=== PATIENT | male | born 1980 | race African-American/Black ===

== ENCOUNTER 2017-07-24 08:38 | Emergency (ER) | payer OTHER ==
[~2017-07-24] VITALS: Ht 165.1 cm; Wt 73.0 kg
[2017-07-24] MEDS ORDERED: MORPHINE SULFATE 4 MG/ML CPJ (NOT FOR IM USE) IV STA ×2 (09:01→10:06)
[2017-07-24] MEDS ORDERED: SODIUM CHLORIDE 0.9% 1,000 ML IV ONE (09:01)
[2017-07-24] MEDS ORDERED: ONDANSETRON HCL 4MG/2ML VIAL IV STA ×2 (09:01→10:06)
[2017-07-24 09:20] LABS: BASOPHILS % 0.5 % (0.0-2.0); EOSINOPHILS % 0.2 % (0.0-5.0); HEMATOCRIT. 46.5 % (42.0-52.0); HEMOGLOBIN. 15.4 g/dL (14.0-18.0); LYMPHOCYTES % 16.1 % (20.0-50.0); MEAN CORPUSCULAR HEMOGLOBIN 28.6 pg (28.0-32.0); MEAN CORPUSCULAR VOLUME 86.4 fL (80.0-94.0); MEAN PLATELET VOLUME 7.4 fl (7.4-10.4); MONOCYTES % 9.3 % (2.0-8.0); NEUTROPHILS % 73.9 % (40.0-76.0); PLATELET 229 x1000/uL (130-400); RED BLOOD CELL COUNT 5.39 mill/uL (4.7-6.1)
[2017-07-24 09:28] LABS: PROTHROMBIN TIME 10.8 sec (9.4-11.6)
[2017-07-24 09:42] LABS: CARBON DIOXIDE 28 mEq/L (21-32); CHLORIDE 102 mEq/L (98-107)
[2017-07-24] MEDS ORDERED: IOHEXOL-300 100 ML BOTTLE ONE (11:08)
[2017-07-24] MEDS ORDERED: HYDROCODONE/ACETAMINOPHEN 5/325MG TABLET PO ONE (12:15)
[2017-07-24 12:54] VITALS: BP 134/77
[2017-07-24 13:06] LABS: KETONES URINE 1+ (NEGATIVE); LEUKOCYTE ESTERASE URINE NEGATIVE (NEGATIVE); NITRITE URINE NEGATIVE (NEGATIVE); OCCULT BLOOD URINE NEGATIVE (NEGATIVE); PH URINE 6.5 (4.5-8.0); PROTEIN URINE 1+ (NEGATIVE); SPECIFIC GRAVITY URINE 1.097 (1.005-1.030)
[2017-07-24 13:08] LABS: CLARITY URINE CLEAR (CLEAR); COLOR URINE YELLOW (YELLOW)
== END 2017-07-24 13:24 | disposition home or self-care (01) ==
LOC: ER 08:58
DX: R10.13 Epigastric pain (principal); R11.2 Nausea with vomiting, unspecified; J45.909 Unspecified asthma, uncomplicated; F17.200 Nicotine dependence, unspecified, uncomplicated; F12.10 Cannabis abuse, uncomplicated; Z88.6 Allergy status to analgesic agent; Z88.8 Allergy status to other drugs, medicaments and biological substances
CPT/HCPCS: 36415; 74177; 80053; 81001; 83690; 85025; 85610; 96361; 96374; 96375; 96376; 99285; J2270; J2405; J7030; Q9967; Z7610

== ENCOUNTER 2017-08-22 20:04 | Inpatient (IN) | payer MEDICAID, OTHER ==
[~2017-08-22] VITALS: Ht 175.3 cm; Wt 59.0 kg
[~2017-08-22 20:04] MED LIST: FENTANYL CITRATE/PF 50MCG/ML 2ML VIAL IV NR
[2017-08-22] MEDS ORDERED: ACETAMINOPHEN 325MG TABLET PO STA (21:44)
[2017-08-22] MEDS ORDERED: AZITHROMYCIN 500 MG in DEXT 5% WATER 250 ML IV ONE (21:45)
[2017-08-22] MEDS ORDERED: CEFTRIAXONE 1 G PREMIX 50 ML IV ONE (21:45)
[2017-08-22] MEDS ORDERED: DIPHENHYDRAMINE 50MG/ML VIAL IV STA (21:50)
[2017-08-22] MEDS ORDERED: MORPHINE SULFATE 2 MG/ML CPJ (NOT FOR IM USE) IV PRN (22:00)
[2017-08-22 22:12] LABS: PROTHROMBIN TIME 10.7 sec (9.4-11.6)
[2017-08-22 22:13] LABS: BASOPHILS % 0.5 % (0.0-2.0); EOSINOPHILS % 0.4 % (0.0-5.0); HEMATOCRIT. 45.2 % (42.0-52.0); HEMOGLOBIN. 14.8 g/dL (14.0-18.0); LYMPHOCYTES % 14.3 % (20.0-50.0); MEAN CORPUSCULAR HEMOGLOBIN 28.7 pg (28.0-32.0); MEAN CORPUSCULAR VOLUME 87.8 fL (80.0-94.0); MEAN PLATELET VOLUME 7.5 fl (7.4-10.4); MONOCYTES % 4.4 % (2.0-8.0); NEUTROPHILS % 80.4 % (40.0-76.0); PLATELET 235 x1000/uL (130-400); RED BLOOD CELL COUNT 5.14 mill/uL (4.7-6.1); RED CELL DISTRIBUTION WIDTH 14.4 % (11.6-14.6)
[2017-08-22 22:22] LABS: CARBON DIOXIDE 25 mEq/L (21-32); CHLORIDE 109 mEq/L (98-107); ETHANOL BLOOD < 10 mg/dL; TROPONIN I < 0.02 ng/mL (0.00-0.04)
[2017-08-22] MEDS ORDERED: SODIUM CHLORIDE 0.9% 1,000 ML IV NR (22:46)
[2017-08-22] MEDS ORDERED: ONDANSETRON HCL 4MG/2ML VIAL IV STA ×2 (23:05→23:42)
[2017-08-22] MEDS ORDERED: SODIUM CHLORIDE 0.9% 1000ML BAG (SEPSIS BOLUS) IV ONE (23:45)
[2017-08-22] MEDS ORDERED: FENTANYL CITRATE/PF 50MCG/ML 2ML VIAL IV ONE (23:45)
[2017-08-22] MEDS ORDERED: SODIUM CHLORIDE 0.9% IV NR (23:45)
[2017-08-22] MEDS ORDERED: IOHEXOL-300 100 ML BOTTLE ONE (23:48)
[2017-08-23 06:53] LABS: CLARITY URINE CLEAR (CLEAR); COLOR URINE YELLOW (YELLOW); KETONES URINE TRACE (NEGATIVE); LEUKOCYTE ESTERASE URINE NEGATIVE (NEGATIVE); NITRITE URINE NEGATIVE (NEGATIVE); OCCULT BLOOD URINE NEGATIVE (NEGATIVE); PH URINE 8.5 (4.5-8.0); PROTEIN URINE NEGATIVE (NEGATIVE)
[2017-08-23 07:41] LABS: *AMPHETAMINES SCREEN URINE NEGATIVE (NEGATIVE); *BENZODIAZEPINES SCREEN URINE NEGATIVE (NEGATIVE); *COCAINE SCREEN URINE NEGATIVE (NEGATIVE); CANNABINOID URINE SCREEN PRESUMTIVE POSITIVE (NEGATIVE); METHADONE URINE SCREEN NEGATIVE (NEGATIVE); OPIATES URINE SCREEN PRESUMTIVE POSITIVE (NEGATIVE); PHENCYCLIDINE URINE SCREEN NEGATIVE (NEGATIVE)
[2017-08-23 08:00] VITALS: BP 109/75
[2017-08-23] MEDS ORDERED: NITROGLYCERIN 0.4MG TABLET SL SL PRN (08:00)
[2017-08-23] MEDS ORDERED: GUAIFENESIN 200MG/10ML SUGAR FREE UDC PO PRN (08:00)
[2017-08-23] MEDS ORDERED: ONDANSETRON HCL 4MG/2ML VIAL IV PRN (08:00)
[2017-08-23] MEDS ORDERED: ACETAMINOPHEN 325MG TABLET PO PRN (08:00)
[2017-08-23] MEDS ORDERED: CLONIDINE 0.1MG TABLET PO PRN (08:00)
[2017-08-23] MEDS ORDERED: DOCUSATE SODIUM 100MG CAPSULE PO PRN (08:00)
[2017-08-23] MEDS ORDERED: NA PHOS,M-B/NA PHOS,DI-BA ENEMA 118ML PR PRN (08:00)
[2017-08-23] MEDS ORDERED: MAGNESIUM/ALUMINUM HYDROXIDE/SIMETHICONE 30ML UDC PO PRN (08:00)
[2017-08-23] MEDS ORDERED: DIPHENHYDRAMINE 50MG/ML VIAL IV PRN (08:00)
[2017-08-23] MEDS ORDERED: LORAZEPAM 0.5MG TABLET PO PRN (08:00)
[2017-08-23] MEDS ORDERED: IPRATROPIUM/ALBUTEROL 0.5-3(2.5)MG/3ML NEB INH PRN (08:00)
[2017-08-23] MEDS ORDERED: SUCRALFATE 1 G/10 ML UDC PO SCH (08:11)
[2017-08-23 08:22] LABS: *BARBITURATES SCREEN URINE NEGATIVE (NEGATIVE)
[2017-08-23] MEDS ORDERED: FAMOTIDINE 20MG/2ML VIAL IV SCH (09:00)
[2017-08-23] MEDS ORDERED: OLAN15TA3 PO (09:38)
[2017-08-23] MEDS ORDERED: PNEUMOCOCCAL VACCINE IM ONE (13:00)
[2017-08-23] MEDS ORDERED: INFLUENZA VACCINE IM ONE (13:00)
[2017-08-23] MEDS ORDERED: ZOLPIDEM TARTRATE 5MG TABLET PO PRN (21:00)
== END 2017-08-23 10:25 | disposition left against medical advice (07) | DRG 241 ==
LOC: ER 20:04 → 8WST 08-23 00:05 → ENRESERV 08-23 07:11
PROVIDERS: ADMIT Internal Medicine; ATTEND Internal Medicine
DX: K29.70 Gastritis, unspecified, without bleeding (principal); E87.2 Acidosis; F10.10 Alcohol abuse, uncomplicated; F12.90 Cannabis use, unspecified, uncomplicated; F17.210 Nicotine dependence, cigarettes, uncomplicated; I25.10 Atherosclerotic heart disease of native coronary artery without angina pectoris; K21.9 Gastro-esophageal reflux disease without esophagitis; F19.10 Other psychoactive substance abuse, uncomplicated; J45.909 Unspecified asthma, uncomplicated; Z53.21 Procedure and treatment not carried out due to patient leaving prior to being seen by health care provider; Z76.5 Malingerer [conscious simulation]; Z88.8 Allergy status to other drugs, medicaments and biological substances; Z88.6 Allergy status to analgesic agent
CPT/HCPCS: 36415; 71045; 74177; 80053; 80061; 80305; 81001; 83036; 83605; 83690; 83880; 84484; 85025; 85610; 87040; 87086; 93005; 96365; 96375; 99285; G0482; J0456; J0696; J1200; J2270; J2405; J3010; J3490; J7030; J7060; Q9967

== ENCOUNTER 2017-10-22 10:48 | Emergency (ER) | payer MEDICAID ==
[~2017-10-22] VITALS: Ht 177.8 cm; Wt 75.0 kg
[~2017-10-22 10:48] MED LIST changes: -FENTANYL CITRATE/PF 50MCG/ML 2ML VIAL IV NR; +OLAN15TA3 PO
[2017-10-22 11:01] VITALS: BP 105/71
== END 2017-10-22 13:04 | disposition left against medical advice (07) ==
LOC: ER 10:49
DX: R46.89 Other symptoms and signs involving appearance and behavior (principal); Z53.21 Procedure and treatment not carried out due to patient leaving prior to being seen by health care provider

== ENCOUNTER 2018-04-15 12:41 | Emergency (ER) | payer MEDICAID ==
[~2018-04-15] VITALS: Ht 177.8 cm; Wt 58.9 kg
[~2018-04-15 12:41] MED LIST changes: +FOLI-43 PO; +LACT10SO7 PO; -OLAN15TA3 PO; +OMEP20TA15 MT; +THIA100T72 PO
[2018-04-15] MEDS ORDERED: MORPHINE SULFATE 4 MG/ML CPJ (NOT FOR IM USE) IV STA (14:14)
[2018-04-15] MEDS ORDERED: SODIUM CHLORIDE 0.9% 1,000 ML IV ONE (14:14)
[2018-04-15] MEDS ORDERED: ONDANSETRON HCL 4MG/2ML INJ IV STA (14:14)
[2018-04-15 14:49] LABS: BASOPHILS % 0.5 % (0.0-2.0); CHLORIDE 103 mEq/L (98-107); HEMOGLOBIN. 14.7 g/dL (14.0-18.0); LYMPHOCYTES % 22.1 % (20.0-50.0); MEAN CORPUSCULAR VOLUME 86.9 fL (80.0-94.0); MEAN PLATELET VOLUME 7.4 fl (7.4-10.4); MONOCYTES % 9.4 % (2.0-8.0); PLATELET 264 x1000/uL (130-400); RED BLOOD CELL COUNT 5.07 mill/uL (4.7-6.1); RED CELL DISTRIBUTION WIDTH 14.5 % (11.6-14.6)
[2018-04-15 14:53] LABS: ETHANOL BLOOD < 10 mg/dL
[2018-04-15 16:30] LABS: CLARITY URINE CLEAR (CLEAR); COLOR URINE DARK YELLOW (YELLOW); KETONES URINE TRACE (NEGATIVE); LEUKOCYTE ESTERASE URINE 1+ (NEGATIVE); NITRITE URINE NEGATIVE (NEGATIVE); OCCULT BLOOD URINE NEGATIVE (NEGATIVE); PROTEIN URINE 1+ (NEGATIVE); SPECIFIC GRAVITY URINE 1.033 (1.005-1.030)
[2018-04-15 16:47] LABS: *AMPHETAMINES SCREEN URINE PRESUMTIVE POSITIVE (NEGATIVE); *BARBITURATES SCREEN URINE NEGATIVE (NEGATIVE); *BENZODIAZEPINES SCREEN URINE NEGATIVE (NEGATIVE); *COCAINE SCREEN URINE NEGATIVE (NEGATIVE); METHADONE URINE SCREEN NEGATIVE (NEGATIVE); OPIATES URINE SCREEN PRESUMTIVE POSITIVE (NEGATIVE)
[2018-04-15 16:48] LABS: CANNABINOID URINE SCREEN PRESUMTIVE POSITIVE (NEGATIVE); PHENCYCLIDINE URINE SCREEN NEGATIVE (NEGATIVE)
[2018-04-15 17:15] VITALS: BP 122/64
[2018-04-15] MEDS ORDERED: HALOPERIDOL LACTATE 5MG/ML VIAL IM ONE (17:15)
== END 2018-04-15 18:11 | disposition home or self-care (01) ==
LOC: ER 12:41
DX: F12.188 Cannabis abuse with other cannabis-induced disorder (principal); F12.10 Cannabis abuse, uncomplicated; J45.909 Unspecified asthma, uncomplicated; K21.9 Gastro-esophageal reflux disease without esophagitis; F17.200 Nicotine dependence, unspecified, uncomplicated; F20.9 Schizophrenia, unspecified; Z88.6 Allergy status to analgesic agent; Z79.899 Other long term (current) drug therapy
CPT/HCPCS: 36415; 80053; 80305; 81003; 83690; 85025; 96361; 96372; 96374; 96375; 99285; G0482; J1630; J2270; J2405; J7030; Z7610

== ENCOUNTER 2023-04-07 21:22 | Emergency (ER) | payer MEDICAID ==
[~2023-04-07] VITALS: Ht 175.3 cm; Wt 63.0 kg
[2023-04-07 21:28] VITALS: O2SAT 99
[2023-04-07] MEDS ORDERED: OLANZAPINE 5MG TABLET ODT PO ONE (21:45)
[2023-04-07 22:13] LABS: BASOPHILS % 0.3 % (0.0-2.0); EOSINOPHILS % 0.9 % (0.0-5.0); HEMATOCRIT. 40.6 % (42.0-52.0); HEMOGLOBIN. 13.2 g/dL (14.0-18.0); LYMPHOCYTES % 22.4 % (20.0-50.0); MEAN CORPUSCULAR HEMOGLOBIN 27.8 pg (28.0-32.0); MEAN CORPUSCULAR HGB CONC 32.4 g/dL (31.0-37.0); MEAN CORPUSCULAR VOLUME 85.7 fL (80.0-94.0); MEAN PLATELET VOLUME 8.3 fl (7.4-10.4); MONOCYTES % 11.6 % (2.0-8.0); NEUTROPHILS % 64.8 % (40.0-76.0); PLATELET 236 x1000/uL (130-400); RED BLOOD CELL COUNT 4.74 mill/uL (4.7-6.1); RED CELL DISTRIBUTION WIDTH 15.3 % (11.6-14.6); WHITE BLOOD COUNT 7.9 x1000/uL (4.5-11.0)
[2023-04-07 22:23] LABS: CHLORIDE 104 mEq/L (98-107); INDEX HEMOLYSI 1 (1-3); INDEX ICTERIC 1 (1-4); INDEX LIPEMIC 1 (1-3); POTASSIUM 3.1 mEq/L (3.5-5.1); SODIUM 136 mEq/L (136-145)
[2023-04-07 22:30] LABS: ACETAMINOPHEN <2 ug/mL ug/mL (10-30); ALANINE AMINOTRANSFERASE 16 IU/L (13-61); ALBUMIN 3.8 g/dL (3.4-5.0); ASPARTATE AMINOTRANSFERASE 5 IU/L (15-37); BILIRUBIN TOTAL 0.4 mg/dL (0.1-1.0); CALCIUM 9.2 mg/dL (8.5-10.1); CARBON DIOXIDE 23 mEq/L (21-32); CREATININE 0.7 mg/dL (0.6-1.3); ETHANOL BLOOD < 10 mg/dL (-10); GLUCOSE 379 mg/dL (70-105); PROTEIN TOTAL 7.3 g/dL (6.0-8.3); UREA NITROGEN BLOOD 11 mg/dL (7-21)
[2023-04-08 01:39] LABS: CLARITY URINE CLEAR (CLEAR); COLOR URINE YELLOW (YELLOW); GLUCOSE URINE 3+ (NEGATIVE); KETONES URINE 3+ (NEGATIVE); LEUKOCYTE ESTERASE URINE NEGATIVE (NEGATIVE); NITRITE URINE NEGATIVE (NEGATIVE); OCCULT BLOOD URINE NEGATIVE (NEGATIVE); PH URINE 5.5 (4.5-8.0); PROTEIN URINE TRACE (NEGATIVE); SPECIFIC GRAVITY URINE 1.044 (1.005-1.030); UROBILINOGEN URINE 0.2 E.U./dL (0.2-1.0)
[2023-04-08 01:41] LABS: BACTERIA URINE NONE SEEN; YEAST URINE NONE SEEN
[2023-04-08 02:13] LABS: *AMPHETAMINES SCREEN URINE PRESUMTIVE POSITIVE (NEGATIVE); *BARBITURATES SCREEN URINE NEGATIVE (NEGATIVE); *BENZODIAZEPINES SCREEN URINE NEGATIVE (NEGATIVE); *COCAINE SCREEN URINE NEGATIVE (NEGATIVE); CANNABINOID URINE SCREEN PRESUMTIVE POSITIVE (NEGATIVE); ECSTASY MDMA SCREEN URINE CONF.TEST INDICATED (NEGATIVE); METHADONE URINE SCREEN NEGATIVE (NEGATIVE); OPIATES URINE SCREEN NEGATIVE (NEGATIVE); PHENCYCLIDINE URINE SCREEN NEGATIVE (NEGATIVE)
[2023-04-08 02:33] LABS: SQUAMOUS EPITHELIAL CELL URINE FEW /lpf (RARE/1+)
[2023-04-08 02:35] LABS: RBC URINE 0-2 /hpf (0-2)
[2023-04-08] MEDS: OLANZAPINE 5MG TABLET ODT PO SCH ×2 (10:30→20:30)
[2023-04-09] MEDS: OLANZAPINE 5MG TABLET ODT PO SCH ×2 (09:00→17:00)
[2023-04-09] MEDS ORDERED: LACTATED RINGERS 1,000 ML IV STA (15:53)
[2023-04-09] MEDS ORDERED: POTASSIUM CHLORIDE 20MEQ TABLET SR PO NR (15:53)
[2023-04-09] MEDS ORDERED: DEXTROSE 50% WATER 50ML SYRINGE IV PRN (16:00)
[2023-04-09] MEDS: BLOOD SUGAR DIAGNOSTIC STRIP TEST SCH ×7 (16:00→22:00)
[2023-04-09 16:56] LABS: CHLORIDE 94 mEq/L (98-107); INDEX HEMOLYSI 4 (1-3); INDEX ICTERIC 1 (1-4); INDEX LIPEMIC 1 (1-3); SODIUM 131 mEq/L (136-145)
[2023-04-09 16:58] LABS: CALCIUM 10.8 mg/dL (8.5-10.1)
[2023-04-09 17:03] LABS: CARBON DIOXIDE 28 mEq/L (21-32); CREATININE 0.6 mg/dL (0.6-1.3); PHOSPHORUS 6.6 mg/dL (2.5-4.9); UREA NITROGEN BLOOD 17 mg/dL (7-21)
[2023-04-09 17:04] LABS: BG BASE EXCESS 4.3 mmol/L (-2.0-2.0); BG CARBOXYHEMOGLOBIN 0.8 % (0.5-1.5); BG DEOXYHEMOGLOBIN 1.4 % (0.0-5.0); BG FRACTION INSPIRED OXYGEN 21; BG METHEMOGLOBIN 0.4 % (0.0-1.5); BG OXYGEN SATURATION 98.6 % (92.0-98.5); BG OXYHEMOGLOBIN 97.4 % (94.0-97.0); BG PCO2 34.8 mmHg (35.0-45.0); BG PH 7.508 (7.350-7.450); BG PO2 102.3 mmHg (75.0-100.0); BG SAMPLE SITE RIGHT BRACHIAL; BG TOTAL HEMOGLOBIN 17.6 g/dL (12.0-18.0); BG VENT MODE ROOM AIR
[2023-04-09 17:05] LABS: GLUCOSE 580 mg/dL (70-105)
[2023-04-09 17:06] LABS: POTASSIUM 4.7 mEq/L (3.5-5.1)
[2023-04-09] MEDS ORDERED: INSULIN LISPRO 100 UNITS/ML SUBCUT NR (17:15)
[2023-04-10] MEDS: OLANZAPINE 5MG TABLET ODT PO SCH (09:24)
[2023-04-10 10:21] VITALS: BP 143/114; PULSE 110; RESP 18; TEMP 97.8
== END 2023-04-10 11:15 | disposition home or self-care (01) ==
LOC: ER 04-08 07:37
DX: F29 Unspecified psychosis not due to a substance or known physiological condition (principal); J45.909 Unspecified asthma, uncomplicated; K21.9 Gastro-esophageal reflux disease without esophagitis; F20.9 Schizophrenia, unspecified; F10.229 Alcohol dependence with intoxication, unspecified; F12.10 Cannabis abuse, uncomplicated; Y90.0 Blood alcohol level of less than 20 mg/100 ml; Z20.822 Contact with and (suspected) exposure to COVID-19
CPT/HCPCS: 80051; 80053; 80048; 80307; 80329; 80320; 82962; 83735; 83930; 84100; 85025; 36415 ×2; 80305; 81003; 87086; 96360; 99285; 87426; C9803; Z7610; J1815; G0480

== ENCOUNTER 2023-04-10 11:26 | Emergency (ER) | payer SELFPAY ==
[~2023-04-10] VITALS: Ht 175.3 cm; Wt 64.0 kg
[2023-04-10 11:36] VITALS: O2SAT 98
[2023-04-10] MEDS ORDERED: OLANZAPINE 5MG TABLET ODT PO ONE (12:45)
[2023-04-10 13:17] LABS: BASOPHILS % 0.8 % (0.0-2.0); EOSINOPHILS % 0.4 % (0.0-5.0); HEMATOCRIT. 49.9 % (42.0-52.0); HEMOGLOBIN. 16.2 g/dL (14.0-18.0); LYMPHOCYTES % 21.5 % (20.0-50.0); MEAN CORPUSCULAR HEMOGLOBIN 27.9 pg (28.0-32.0); MEAN CORPUSCULAR HGB CONC 32.4 g/dL (31.0-37.0); MEAN CORPUSCULAR VOLUME 86.2 fL (80.0-94.0); MEAN PLATELET VOLUME 8.8 fl (7.4-10.4); MONOCYTES % 9.5 % (2.0-8.0); NEUTROPHILS % 67.8 % (40.0-76.0); PLATELET 256 x1000/uL (130-400); RED BLOOD CELL COUNT 5.79 mill/uL (4.7-6.1); RED CELL DISTRIBUTION WIDTH 15.3 % (11.6-14.6); WHITE BLOOD COUNT 9.3 x1000/uL (4.5-11.0)
[2023-04-10 13:38] LABS: CHLORIDE 92 mEq/L (98-107); INDEX HEMOLYSI 3 (1-3); INDEX ICTERIC 1 (1-4); INDEX LIPEMIC 1 (1-3); SODIUM 127 mEq/L (136-145)
[2023-04-10 13:49] LABS: ACETAMINOPHEN <2 ug/mL ug/mL (10-30); ALANINE AMINOTRANSFERASE 17 IU/L (13-61); ALBUMIN 3.8 g/dL (3.4-5.0); ASPARTATE AMINOTRANSFERASE 13 IU/L (15-37); BILIRUBIN TOTAL 0.7 mg/dL (0.1-1.0); CARBON DIOXIDE 24 mEq/L (21-32); CREATININE 0.6 mg/dL (0.6-1.3); ETHANOL BLOOD < 10 mg/dL (-10); PROTEIN TOTAL 7.8 g/dL (6.0-8.3); UREA NITROGEN BLOOD 19 mg/dL (7-21)
[2023-04-10 13:52] LABS: GLUCOSE 492 mg/dL (70-105)
[2023-04-10] MEDS ORDERED: INSULIN REGULAR (HUMULIN R) 300UNITS/3ML VIAL SUBCUT ONE (15:30)
[2023-04-10] MEDS ORDERED: OLANZAPINE 5MG TABLET ODT PO NR (21:31)
[2023-04-10] MEDS ORDERED: INSULIN REGULAR (HUMULIN R) 300UNITS/3ML VIAL SUBCUT NR (21:32)
[2023-04-11] MEDS ORDERED: INSULIN REGULAR (HUMULIN R) 300UNITS/3ML VIAL SUBCUT ONE (09:45)
[2023-04-11] MEDS: OLANZAPINE 5MG TABLET ODT PO SCH ×2 (10:53→18:40)
[2023-04-11] MEDS ORDERED: ONDANSETRON 4MG ODT PO ONE (20:15)
[2023-04-11] MEDS ORDERED: INSULIN REGULAR (HUMULIN R) 300UNITS/3ML VIAL SUBCUT NR (21:45)
[2023-04-11] MEDS ORDERED: DEXTROSE 50% WATER 50ML SYRINGE IV PRN (22:45)
[2023-04-11] MEDS ORDERED: SODIUM CHLORIDE 0.9% 1,000 ML IV ONE (23:15)
[2023-04-11 23:52] LABS: CLARITY URINE CLEAR (CLEAR); COLOR URINE YELLOW (YELLOW); GLUCOSE URINE 2+ (NEGATIVE); KETONES URINE 1+ (NEGATIVE); LEUKOCYTE ESTERASE URINE 1+ (NEGATIVE); NITRITE URINE NEGATIVE (NEGATIVE); OCCULT BLOOD URINE NEGATIVE (NEGATIVE); PH URINE 7.5 (4.5-8.0); PROTEIN URINE NEGATIVE (NEGATIVE); SPECIFIC GRAVITY URINE 1.042 (1.005-1.030)
[2023-04-12] LABS: *AMPHETAMINES SCREEN URINE NEGATIVE (NEGATIVE); *BARBITURATES SCREEN URINE NEGATIVE (NEGATIVE); *BENZODIAZEPINES SCREEN URINE NEGATIVE (NEGATIVE); *COCAINE SCREEN URINE NEGATIVE (NEGATIVE); CANNABINOID URINE SCREEN PRESUMTIVE POSITIVE (NEGATIVE); ECSTASY MDMA SCREEN URINE NEGATIVE (NEGATIVE); METHADONE URINE SCREEN NEGATIVE (NEGATIVE); OPIATES URINE SCREEN NEGATIVE (NEGATIVE); PHENCYCLIDINE URINE SCREEN NEGATIVE (NEGATIVE)
[2023-04-12 00:46] LABS: SQUAMOUS EPITHELIAL CELL URINE FEW /lpf (RARE/1+)
[2023-04-12 00:47] LABS: RBC URINE 0-2 /hpf (0-2); WBC URINE 15-25 /hpf (0-2)
[2023-04-12 00:48] LABS: BACTERIA URINE NONE SEEN
[2023-04-12] MEDS: BLOOD SUGAR DIAGNOSTIC STRIP TEST SCH ×4 (09:00→21:00)
[2023-04-12] MEDS: INSULIN LISPRO 100 UNITS/ML SUBCUT SCH ×4 (09:22→18:38)
[2023-04-12] MEDS: OLANZAPINE 5MG TABLET ODT PO SCH ×2 (09:50→17:00)
[2023-04-13] MEDS ORDERED: ONDANSETRON HCL 4MG/2ML INJ IV ONE ×2 (02:00→10:30)
[2023-04-13] MEDS: BLOOD SUGAR DIAGNOSTIC STRIP TEST SCH ×3 (09:07→17:36)
[2023-04-13] MEDS: INSULIN LISPRO 100 UNITS/ML SUBCUT SCH ×5 (09:07→19:10)
[2023-04-13] MEDS: OLANZAPINE 5MG TABLET ODT PO SCH ×2 (09:14→17:26)
[2023-04-13] MEDS ORDERED: SODIUM CHLORIDE 0.9% 1,000 ML IV ONE ×2 (14:45)
[2023-04-13] MEDS ORDERED: INSULIN LISPRO (HUMALOG) 300UNITS/3ML VIAL SUBCUT SCH (16:15)
[2023-04-13] MEDS ORDERED: ONDANSETRON 4MG ODT PO ONE (21:30)
[2023-04-14] MEDS: BLOOD SUGAR DIAGNOSTIC STRIP TEST SCH ×5 (02:50→21:35)
[2023-04-14] MEDS ORDERED: ONDANSETRON 4MG ODT PO NR (03:00)
[2023-04-14] MEDS: INSULIN LISPRO 100 UNITS/ML SUBCUT SCH ×8 (03:08→21:47)
[2023-04-14] MEDS: INSULIN GLARGINE 100 UNITS/ML SUBCUT SCH ×2 (03:09→21:51)
[2023-04-14] MEDS: OLANZAPINE 5MG TABLET ODT PO SCH ×2 (09:00→17:00)
[2023-04-15] MEDS: BLOOD SUGAR DIAGNOSTIC STRIP TEST SCH ×4 (10:14→21:07)
[2023-04-15] MEDS ORDERED: OLANZAPINE 5MG TABLET ODT PO SCH (10:30)
[2023-04-15] MEDS: INSULIN LISPRO 100 UNITS/ML SUBCUT SCH ×5 (11:50→21:06)
[2023-04-15] MEDS ORDERED: ONDANSETRON 4MG ODT PO ONE ×2 (16:00→19:45)
[2023-04-15] MEDS: OLANZAPINE 5MG TABLET ODT PO SCH (19:22)
[2023-04-16] MEDS: INSULIN GLARGINE 100 UNITS/ML SUBCUT SCH (00:31)
[2023-04-16] MEDS: INSULIN LISPRO 100 UNITS/ML SUBCUT SCH ×4 (07:50→09:13)
[2023-04-16] MEDS: BLOOD SUGAR DIAGNOSTIC STRIP TEST SCH (08:57)
[2023-04-16] MEDS: OLANZAPINE 5MG TABLET ODT PO SCH (09:12)
[2023-04-16 10:20] VITALS: BP 138/67; PULSE 80; RESP 14; TEMP 98.7
== END 2023-04-16 11:18 | disposition home or self-care (01) ==
LOC: ER 11:26
DX: F29 Unspecified psychosis not due to a substance or known physiological condition (principal); R73.9 Hyperglycemia, unspecified; F10.229 Alcohol dependence with intoxication, unspecified; J45.909 Unspecified asthma, uncomplicated; K21.9 Gastro-esophageal reflux disease without esophagitis; Z20.822 Contact with and (suspected) exposure to COVID-19; Y90.0 Blood alcohol level of less than 20 mg/100 ml
CPT/HCPCS: 80053; 80305; 81001; 80307; 82010; 80329; 80320; 82962 ×2; 85025; 36415; 96372 ×2; 99284; 87426; J1815 ×9; C9803; Q0162 ×3; J2405; J7030; G0480